=== PATIENT | male | born 1965 | race Caucasian/White ===

== ENCOUNTER 2020-04-20 18:39 | Emergency (ER) | payer OTHER, SELFPAY ==
[2020-04-20 18:41] VITALS: BP 159/89; PULSE 61; RESP 18; TEMP 36.6; O2SAT 98; BMI 31.6
--- NOTE | 2020-04-20 19:15 | RAD_ITS ---
STUDY: X-RAY CHEST REASON FOR EXAM: Male, 54 years old. checking for patency of port TECHNIQUE: Portable chest COMPARISON: None. FINDINGS: The lungs are clear and expanded. There is no demonstrated pleural abnormality. There is a left internal jugular venous with the catheter tip is projecting over the superior vena cava. There is no pneumothorax. There is right upper lobe calcified granuloma. Normal size heart. Normal mediastinum and liliana. Normal visualized pulmonary arteries. Normal visualized aortic arch and descending thoracic aorta. Normal visualized thoracic spine. Normal visualized ribs, clavicles, and shoulders. There is no demonstrated abnormality of the visualized soft tissue structures of the upper abdomen. RAD/Chest 1 View (Portable) IMPRESSION: left internal jugular venous with the catheter tip projecting over the superior vena cava. There is no pneumothorax. Electronically Signed: Denilson Crockett, at 19:33 EDT Tel , Service support ,
--- NOTE | 2020-04-20 19:27 | ED.VIS.GEN ---
History of Present Illness Chief Complaint: Chest Other Informant: Patient Onset: Today Context: Sudden Onset Narrative: Patient is a 54-year-old male that is currently on every 6 meropenem for foot infection presenting with clogged Mediport. Patient has a port in his left anterior chest wall. He was receiving infusion of meropenem at noon today. Afterwards he started to have blood back up into the tubing. Home health aides were unable to flush the port. He was sent to the emergency room for further evaluation of this. Patient denies any other complaints at this time. Past Medical History - Allergies and Home Meds Allergies/Adverse Reactions: Allergies benazepril [From Lotensin] Allergy (Verified 04/20/20 18:44) Chest tightness enalaprilat [From Vasotec] Allergy (Verified 04/20/20 18:44) Chest tightness Primary Care Physician: BETTY BUTLER [Other] Past Medical History: - - History of kidney transplant, history of end-stage renal disease, diabetes mellitus, foot infection, coronary artery disease, hypertension, hyperlipidemia Lives: With Family Smoking Status: Never smoker Review of Systems General: Denies: Chills, Fever, Sweats Eyes: Denies: Visual changes - bilaterally, Diplopia ENT: Denies: Rhinorrhea, Sore throat Cardiovascular: Denies: Chest pain, Palpitations Respiratory: Denies: Dyspnea, Cough, Dyspnea on exertion Gastrointestinal: Denies: Abdominal pain, Nausea, Vomiting, Diarrhea, Melena, Hematochezia Genitourinary: Denies: Dysuria, Hematuria, Frequency Musculoskeletal: Denies: Back pain, Extremity Pain Skin: Reports: Wounds - Chronic wounds on lower extremities, wound VAC on the right foot. Denies: Rash Neurological: Denies: Headache, Weakness, Numbness Physical Exam Vital Signs/Narrative: Vital Signs Temp Pulse Resp BP Pulse Ox 04/20/20 18:41 98 F 61 18 159/89 H 98 Inital Vital Signs reviewed: Yes General: Well nourished, Well developed, No Acute Distress Head: Normocephalic, Atraumatic Eyes: Perrl, EOMI ENT: Moist mucous membranes, No rhinorrhea Neck: Supple, Nontender Cardiovascular: Regular rate, Regular rhythm, No murmurs, - Respiratory: No distress, CTA bilaterally, Chest nontender, - - PICC line sticking out of the left anterior chest with clotted blood seen in the tubing. Surrounding signs of infection and tenderness to palpation. Abdomen: Soft, Nontender, Nondistended, Normal bowel sounds Back: Nontender, Normal Inspection Extremities: Nontender, - - Chronic wounds of the lower extremities with wound VAC in place of the right lower leg. AV fistula of the right upper extremity present Skin: Normal color. Negative for: Trauma Neurological: Alert, Oriented x3, Cranial nerves II-XII grossly intact, Normal Strength, Normal Sensation Psychological: Normal affect, Normal Mood Diagnostic/Tx/Re-eval Chest X-Ray - ED: 1 View, Read by ED Physician, Read by Radiologist, No Acute Disease Clinical Impression(s) from Imaging Studies Chest X-Ray 04/20/20 19:15 IMPRESSION: left internal jugular venous with the catheter tip projecting over the superior vena cava. There is no pneumothorax. Electronically Signed: Denilson Crockett, at 19:33 EDT Tel , Service support , Laboratory Data 04/20/20 04/20/20 21:00 21:00 WBC 10.8 RBC 4.73 Hgb 13.6 Hct 42.8 MCV 90.5 MCH 28.8 MCHC 31.8 L RDW Std Deviation 45.1 H RDW Coeff of Adonay 13.7 Plt Count 256 MPV 10.8 Immature Gran % (Auto) 0.600 Neut % (Auto) 64.4 Lymph % (Auto) 23.1 [place] % (Auto) 8.6 Eos % (Auto) 2.9 Baso % (Auto) 0.4 Absolute Neuts (auto) 6.9 Absolute Lymphs (auto) 2.49 Nucleated RBC % 0 Sodium 141 Potassium 4.4 Chloride 109 H Carbon Dioxide 30.0 Anion Gap 2 L BUN 24 H Creatinine 1.05 Estim Creat Clear Calc 99.89 Est GFR (MDRD) Af Amer 95 Est GFR (MDRD) Non-Af 78 BUN/Creatinine Ratio 22.9 H Glucose 72 L Calcium 10.6 H - Medical Decision Making Evaluate for clogged PICC line. Is been placed for 1 week and most recently worked this afternoon. Cathflo is placed into the PICC however the clot is unable to be relieved. Initially plan was to admit patient so he could still receive his IV meropenem and then have new PICC line placed in the morning however patient requested that he just receive a peripheral IV and then come back for an outpatient PICC line. Patient is given a dose of meropenem in the emergency room. He is scheduled for outpatient PICC line placement at 2 PM tomorrow. This is approved by the nursing fireworks assembly supervisor as well. Patient be discharged home with his peripheral IV in place and he can have his morning and afternoon treatments. I did discuss the case with his ID team at [facility] who is comfortable with this plan as long as he is receiving his antibiotics. ED Disposition - Plan for ED Patient: Disposition: Home or Assisted Living Diagnosis: Occluded PICC line Referrals: BETTY BUTLER [Other] Additional Instructions: You have been given a dose of meropenem in the ER today. We were not able to flush and clear the clots from your PICC line. Please return to outpatient radiology tomorrow at 2 PM for a new PICC line to be placed. The order is already been placed. In the meantime you will have a peripheral IV in to give meropenem at home as normally scheduled. Return the emergency room if you have any issues.
[2020-04-20] MEDS: Alteplase 2 MG/2 ML Vial IV (19:30)
[2020-04-20 21:13] LABS: Absolute Lymphocyte Count 2.49 X10^3/uL (0.83-4.51); Absolute Neutrophil Count 6.9 X10^3/uL (2.0-7.7); Basophil# 0.04 X10^3/uL; Basophil% 0.4 % (0-1); Eosinophil# 0.31 X10^3/uL; Eosinophils% 2.9 % (0-5); Hematocrit 42.8 % (40-54); Hemoglobin 13.6 g/dL (13.0-16.5); Lymphocyte # 2.49 X10^3/ul (4.0); Lymphocyte % 23.1 % (19-41); Mean Corp Hgb Conc 31.8 g/dL (32-36); Mean Corpuscular Hgb 28.8 pg (27.0-32.0); Mean Corpuscular Volume 90.5 fL (80-94); Mean Platelet Vol. 10.8 fl (6.2-12.0); Monocyte# 0.92 X10^3/uL; Monocyte% 8.6 % (0-10); NRBC Flagged by Analyzer 0 % (0-5); Neutrophil # 6.94 X10^3/uL (2.7-7.7); Neutrophil % 64.4 % (47-70); Platelet Count 256 K/mm3 (150-450); RBC Distribution Width CV 13.7 % (11.6-14.6); RBC Distribution Width SD 45.1 fl (35.1-43.9); Red Blood Count 4.73 M/mm3 (4.6-6.2); White Blood Count 10.8 K/mm3 (4.4-11.0)
[2020-04-20 21:29] LABS: Anion Gap 2 (5-15); BUN 24 mg/dL (7-18); BUN/Creat Ratio 22.9 RATIO (10-20); Calcium,Total 10.6 mg/dL (8.5-10.1); Chloride 109 mmol/L (98-107); Creatinine, Serum 1.05 mg/dL (0.70-1.30); EST Glomerular Filtration Rate 78 mL/min (>60); Est Glom Filt Rate - Afr Amer 95 mL/min (>60); Estimated Creatinine Clearance 99.89 ml/min; Glucose 72 mg/dL (74-106); Potassium 4.4 mmol/L (3.5-5.1); Sodium Level 141 mmol/L (136-145)
--- NOTE | 2020-04-20 22:25 | ED.RN ---
PT DC'D HOME WITH LEFT FOREARM 20G IV INSERTED, DRESSING INTACT PER MD ORDERS, OFFICE MACHINES SALES REPRESENTATIVE AND DEMO EVENT SPECIALIST AWARE. PT'S PORT OCCLUDED, WILL BE RETURNING TOMORROW FOR PICC PLACEMENT. PT REQUIRES IV ATB AT HOME, WILL ADMINISTER BY PERIPHERAL IV. PERIPHERAL IV CARE TEACHING TO AND PT. FLUSHED UNDER THIS WELDING SUPERVISOR. NEITHER PT NOR VOICE FURTHER CONCERNS.
== END 2020-04-20 22:28 | disposition home or self-care (01) ==
PROVIDERS: Emergency Provider Emergency Medicine
DX: T82.594A Other mechanical complication of infusion catheter, initial encounter (principal); I12.0 Hypertensive chronic kidney disease with stage 5 chronic kidney disease or end stage renal disease; E11.22 Type 2 diabetes mellitus with diabetic chronic kidney disease; N18.6 End stage renal disease; I25.10 Atherosclerotic heart disease of native coronary artery without angina pectoris; E78.5 Hyperlipidemia, unspecified; Z94.0 Kidney transplant status; Z79.82 Long term (current) use of aspirin; Z79.02 Long term (current) use of antithrombotics/antiplatelets; Z79.4 Long term (current) use of insulin; Z79.899 Other long term (current) drug therapy
CPT/HCPCS: 71045; 80048; 85025; 96365; 96366; 99283; J2185; J2997; J7050; A4216

== ENCOUNTER → 2020-04-21 13:53 | Outpatient (CLI) | payer OTHER, SELFPAY ==
[2020-04-20 18:41] VITALS: BMI 31.6
[2020-04-21 14:07] VITALS: BP 121/51; PULSE 60; RESP 18; TEMP 36.4; O2SAT 99; BMI 31.0
--- NOTE | 2020-04-21 14:36 | NURSING ---
AccessRAshley Leahy arrived to facility to assess PICC line and replace if necessary. Reviewed radiology report from 04/20 and found that patient has a tunneled L chest IJ with tip in SVC. HX states that the ED was unsuccessful with cath jose and unable to aspirate and flush. Assessed line: clean dry bandage covers line at insertion site. Flushes easily. Excellent blood return noted. flushed 50mL NS. No action needed. Report given to SAGAR Mayes
== END ==
DX: Z45.2 Encounter for adjustment and management of vascular access device (principal)
CPT/HCPCS: A4216

== ENCOUNTER 2020-04-28 15:33 | Outpatient (RCR) | payer OTHER, SELFPAY ==
[2020-04-21 14:07] VITALS: BMI 31.0
[2020-04-24 15:53] LABS: Absolute Lymphocyte Count 2.03 X10^3/uL (0.83-4.51); Absolute Neutrophil Count 5.9 X10^3/uL (2.0-7.7); Basophil# 0.05 X10^3/uL; Basophil% 0.5 % (0-1); Eosinophils% 3.2 % (0-5); Hematocrit 40.6 % (40-54); Hemoglobin 12.8 g/dL (13.0-16.5); Lymphocyte # 2.03 X10^3/ul (4.0); Lymphocyte % 21.8 % (19-41); Mean Corp Hgb Conc 31.5 g/dL (32-36); Mean Corpuscular Volume 92.1 fL (80-94); Mean Platelet Vol. 11.6 fl (6.2-12.0); Monocyte# 0.97 X10^3/uL; Monocyte% 10.4 % (0-10); NRBC Flagged by Analyzer 0 % (0-5); Neutrophil # 5.91 X10^3/uL (2.7-7.7); Neutrophil % 63.7 % (47-70); Platelet Count 225 K/mm3 (150-450); RBC Distribution Width CV 13.7 % (11.6-14.6); RBC Distribution Width SD 45.7 fl (35.1-43.9); Red Blood Count 4.41 M/mm3 (4.6-6.2); White Blood Count 9.3 K/mm3 (4.4-11.0)
[2020-04-24 16:24] LABS: Creatinine, Serum 0.99 mg/dL (0.70-1.30); EST Glomerular Filtration Rate 84 mL/min (>60); Est Glom Filt Rate - Afr Amer 102 mL/min (>60)
[2020-05-02 23:19] LABS: Tacrolimus (FK506) 6.3 ng/mL (2.0-20.0)
== END 2020-04-28 18:00 | disposition home or self-care (01) ==
LOC: HHLAB 15:33
DX: M86.9 Osteomyelitis, unspecified (principal)
CPT/HCPCS: 80197; 82565; 85025

== ENCOUNTER → 2020-05-22 | Outpatient (CLI) | payer OTHER, SELFPAY ==
[2020-04-21 14:07] VITALS: BMI 31.0
== END | disposition home or self-care (01) ==
LOC: HHLAB 17:28
DX: Z00.00 Encounter for general adult medical examination without abnormal findings (principal)
CPT/HCPCS: 82565; 85025

== ENCOUNTER → 2020-05-29 11:28 | Outpatient (CLI) | payer OTHER, SELFPAY ==
[2020-04-21 14:07] VITALS: BMI 31.0
== END ==
DX: E11.621 Type 2 diabetes mellitus with foot ulcer (principal); L97.422 Non-pressure chronic ulcer of left heel and midfoot with fat layer exposed; Z79.4 Long term (current) use of insulin
CPT/HCPCS: 82565; 85025

== ENCOUNTER 2020-06-05 15:52 | Outpatient (RCR) | payer OTHER, SELFPAY ==
[2020-04-21 14:07] VITALS: BMI 31.0
[2020-05-08 13:30] LABS: Absolute Lymphocyte Count 1.66 X10^3/uL (0.83-4.51); Absolute Neutrophil Count 6.8 X10^3/uL (2.0-7.7); Basophil# 0.03 X10^3/uL; Basophil% 0.3 % (0-1); Eosinophil# 0.27 X10^3/uL; Eosinophils% 2.8 % (0-5); Hematocrit 41.7 % (40-54); Hemoglobin 13.2 g/dL (13.0-16.5); Lymphocyte # 1.66 X10^3/ul (4.0); Lymphocyte % 17.3 % (19-41); Mean Corp Hgb Conc 31.7 g/dL (32-36); Mean Corpuscular Hgb 28.5 pg (27.0-32.0); Mean Corpuscular Volume 90.1 fL (80-94); Mean Platelet Vol. 11.5 fl (6.2-12.0); Monocyte# 0.81 X10^3/uL; Monocyte% 8.5 % (0-10); NRBC Flagged by Analyzer 0 % (0-5); Neutrophil # 6.76 X10^3/uL (2.7-7.7); Neutrophil % 70.7 % (47-70); Platelet Count 190 K/mm3 (150-450); RBC Distribution Width CV 13.6 % (11.6-14.6); Red Blood Count 4.63 M/mm3 (4.6-6.2); White Blood Count 9.6 K/mm3 (4.4-11.0)
[2020-05-08 13:38] LABS: Creatinine, Serum 1.39 mg/dL (0.70-1.30); EST Glomerular Filtration Rate 57 mL/min (>60); Est Glom Filt Rate - Afr Amer 69 mL/min (>60)
[2020-05-14 16:58] LABS: Absolute Lymphocyte Count 1.66 X10^3/uL (0.83-4.51); Absolute Neutrophil Count 6.6 X10^3/uL (2.0-7.7); Basophil# 0.03 X10^3/uL; Basophil% 0.3 % (0-1); Eosinophil# 0.22 X10^3/uL; Eosinophils% 2.4 % (0-5); Hematocrit 41.9 % (40-54); Hemoglobin 13.2 g/dL (13.0-16.5); Lymphocyte # 1.66 X10^3/ul (4.0); Lymphocyte % 17.8 % (19-41); Mean Corp Hgb Conc 31.5 g/dL (32-36); Mean Corpuscular Hgb 28.5 pg (27.0-32.0); Mean Corpuscular Volume 90.5 fL (80-94); Mean Platelet Vol. 11.3 fl (6.2-12.0); Monocyte# 0.77 X10^3/uL; Monocyte% 8.2 % (0-10); NRBC Flagged by Analyzer 0 % (0-5); Neutrophil # 6.61 X10^3/uL (2.7-7.7); Neutrophil % 70.8 % (47-70); Platelet Count 217 K/mm3 (150-450); RBC Distribution Width CV 13.7 % (11.6-14.6); RBC Distribution Width SD 44.3 fl (35.1-43.9); Red Blood Count 4.63 M/mm3 (4.6-6.2); White Blood Count 9.3 K/mm3 (4.4-11.0)
[2020-05-14 17:11] LABS: Creatinine, Serum 0.93 mg/dL (0.70-1.30); EST Glomerular Filtration Rate 90 mL/min (>60); Est Glom Filt Rate - Afr Amer 109 mL/min (>60)
[2020-05-22 17:41] LABS: Absolute Lymphocyte Count 1.39 X10^3/uL (0.83-4.51); Absolute Neutrophil Count 7.6 X10^3/uL (2.0-7.7); Basophil# 0.03 X10^3/uL; Basophil% 0.3 % (0-1); Eosinophil# 0.17 X10^3/uL; Eosinophils% 1.7 % (0-5); Hematocrit 42.2 % (40-54); Hemoglobin 13.5 g/dL (13.0-16.5); Lymphocyte # 1.39 X10^3/ul (4.0); Lymphocyte % 13.9 % (19-41); Mean Corpuscular Hgb 28.5 pg (27.0-32.0); Mean Platelet Vol. 11.5 fl (6.2-12.0); Monocyte# 0.71 X10^3/uL; Monocyte% 7.1 % (0-10); NRBC Flagged by Analyzer 0 % (0-5); Neutrophil # 7.63 X10^3/uL (2.7-7.7); Neutrophil % 76.5 % (47-70); Platelet Count 256 K/mm3 (150-450); RBC Distribution Width CV 13.9 % (11.6-14.6); RBC Distribution Width SD 44.8 fl (35.1-43.9); Red Blood Count 4.74 M/mm3 (4.6-6.2)
[2020-05-22 18:24] LABS: Creatinine, Serum 1.17 mg/dL (0.70-1.30); EST Glomerular Filtration Rate 69 mL/min (>60); Est Glom Filt Rate - Afr Amer 84 mL/min (>60)
[2020-05-29 11:53] LABS: Absolute Lymphocyte Count 1.97 X10^3/uL (0.83-4.51); Absolute Neutrophil Count 4.9 X10^3/uL (2.0-7.7); Basophil# 0.03 X10^3/uL; Basophil% 0.4 % (0-1); Eosinophil# 0.22 X10^3/uL; Eosinophils% 2.8 % (0-5); Hematocrit 41.5 % (40-54); Hemoglobin 13.4 g/dL (13.0-16.5); Lymphocyte # 1.97 X10^3/ul (4.0); Lymphocyte % 25.3 % (19-41); Mean Corp Hgb Conc 32.3 g/dL (32-36); Mean Corpuscular Hgb 29.1 pg (27.0-32.0); Mean Corpuscular Volume 90.2 fL (80-94); Mean Platelet Vol. 11.2 fl (6.2-12.0); Monocyte# 0.65 X10^3/uL; Monocyte% 8.3 % (0-10); NRBC Flagged by Analyzer 0 % (0-5); Neutrophil # 4.88 X10^3/uL (2.7-7.7); Neutrophil % 62.6 % (47-70); Platelet Count 208 K/mm3 (150-450); RBC Distribution Width CV 14.1 % (11.6-14.6); RBC Distribution Width SD 45.2 fl (35.1-43.9); White Blood Count 7.8 K/mm3 (4.4-11.0)
[2020-05-29 11:56] LABS: Creatinine, Serum 1.01 mg/dL (0.70-1.30); EST Glomerular Filtration Rate 82 mL/min (>60); Est Glom Filt Rate - Afr Amer 99 mL/min (>60)
[2020-06-05 16:21] LABS: Absolute Lymphocyte Count 1.53 X10^3/uL (0.83-4.51); Absolute Neutrophil Count 8.7 X10^3/uL (2.0-7.7); Basophil# 0.05 X10^3/uL; Basophil% 0.4 % (0-1); Eosinophil# 0.25 X10^3/uL; Eosinophils% 2.2 % (0-5); Hematocrit 43.4 % (40-54); Hemoglobin 13.7 g/dL (13.0-16.5); Lymphocyte # 1.53 X10^3/ul (4.0); Lymphocyte % 13.4 % (19-41); Mean Corp Hgb Conc 31.6 g/dL (32-36); Mean Corpuscular Hgb 27.8 pg (27.0-32.0); Mean Corpuscular Volume 88.2 fL (80-94); Mean Platelet Vol. 11.6 fl (6.2-12.0); Monocyte# 0.79 X10^3/uL; Monocyte% 6.9 % (0-10); NRBC Flagged by Analyzer 0 % (0-5); Neutrophil # 8.73 X10^3/uL (2.7-7.7); Neutrophil % 76.4 % (47-70); Platelet Count 260 K/mm3 (150-450); RBC Distribution Width CV 14.1 % (11.6-14.6); RBC Distribution Width SD 44.9 fl (35.1-43.9); Red Blood Count 4.92 M/mm3 (4.6-6.2); White Blood Count 11.4 K/mm3 (4.4-11.0)
[2020-06-05 16:27] LABS: Creatinine, Serum 1.01 mg/dL (0.70-1.30); EST Glomerular Filtration Rate 82 mL/min (>60); Est Glom Filt Rate - Afr Amer 99 mL/min (>60)
== END 2020-06-05 18:00 | disposition home or self-care (01) ==
LOC: HHLAB 15:52
DX: E11.621 Type 2 diabetes mellitus with foot ulcer (principal); L97.412 Non-pressure chronic ulcer of right heel and midfoot with fat layer exposed; E11.22 Type 2 diabetes mellitus with diabetic chronic kidney disease; N18.9 Chronic kidney disease, unspecified; E11.65 Type 2 diabetes mellitus with hyperglycemia; E11.42 Type 2 diabetes mellitus with diabetic polyneuropathy; E78.5 Hyperlipidemia, unspecified; E66.9 Obesity, unspecified; Z68.30 Body mass index [BMI] 30.0-30.9, adult; Z79.2 Long term (current) use of antibiotics; Z79.02 Long term (current) use of antithrombotics/antiplatelets; Z79.52 Long term (current) use of systemic steroids; Z79.82 Long term (current) use of aspirin; Z79.4 Long term (current) use of insulin; Z89.411 Acquired absence of right great toe; Z94.0 Kidney transplant status
CPT/HCPCS: 82565; 85025; J7040; A4216

== ENCOUNTER 2020-06-30 14:59 | Outpatient (RCR) | payer OTHER, SELFPAY ==
[2020-04-21 14:07] VITALS: BMI 31.0
[2020-06-30 15:44] LABS: ALB/GLOB Ratio 0.8 RATIO (0.9-2.4); AST(SGOT) 29 U/L (15-37); Alanine Aminotransfer ALT/SGPT 43 U/L (16-61); Alkaline Phosphatase 120 U/L (45-117); Anion Gap 4 (5-15); BUN 16 mg/dL (7-18); BUN/Creat Ratio 13.3 RATIO (10-20); Calcium,Total 9.5 mg/dL (8.5-10.1); Chloride 105 mmol/L (98-107); EST Glomerular Filtration Rate 67 mL/min (>60); Est Glom Filt Rate - Afr Amer 81 mL/min (>60); Glucose 319 mg/dL (74-106); Potassium 3.9 mmol/L (3.5-5.1); Sodium Level 139 mmol/L (136-145)
[2020-06-30 15:48] LABS: Hemoglobin A1c 8.4 % (3.8-5.6)
== END 2020-07-05 23:59 ==
LOC: HHLAB 14:59
PROVIDERS: Internal Medicine Endocrinology, Diabetes & Metabolism
DX: E11.621 Type 2 diabetes mellitus with foot ulcer (principal); L97.412 Non-pressure chronic ulcer of right heel and midfoot with fat layer exposed
CPT/HCPCS: 80053; 80197; 83036

== ENCOUNTER 2020-10-18 12:23 | Outpatient (RCR) | payer OTHER, SELFPAY ==
[2020-04-21 14:07] VITALS: BMI 31.0
[2020-10-18 12:57] LABS: ALB/GLOB Ratio 0.8 RATIO (0.9-2.4); AST(SGOT) 52 U/L (15-37); Alanine Aminotransfer ALT/SGPT 68 U/L (16-61); Albumin, Serum 2.8 g/dL (3.2-5.0); Alkaline Phosphatase 123 U/L (45-117); Anion Gap 6 (5-15); BUN 12 mg/dL (7-18); Chloride 105 mmol/L (98-107); Creatinine, Serum 1.09 mg/dL (0.70-1.30); EST Glomerular Filtration Rate 75 mL/min (>60); Est Glom Filt Rate - Afr Amer 91 mL/min (>60); Globulin 3.7 g/dL (2.2-4.2); Glucose 202 mg/dL (74-106); Potassium 3.7 mmol/L (3.5-5.1); Protein, Total 6.5 g/dL (6.4-8.2); Sodium Level 137 mmol/L (136-145)
[2020-10-18 13:01] LABS: Vitamin D,25 Hydroxy 101.8 ng/mL
[2020-10-18 13:08] LABS: Hemoglobin A1c 10.7 % (3.8-5.6)
== END 2020-10-18 18:00 | disposition home or self-care (01) ==
LOC: HHLAB 12:23
DX: E11.621 Type 2 diabetes mellitus with foot ulcer (principal); L97.412 Non-pressure chronic ulcer of right heel and midfoot with fat layer exposed
CPT/HCPCS: 80053; 82306; 83036

== ENCOUNTER → 2023-01-11 23:59 | Outpatient (RCR) | payer OTHER, SELFPAY ==
[2020-04-17 15:03] LABS: Absolute Lymphocyte Count 1.54 X10^3/uL (0.83-4.51); Absolute Neutrophil Count 7.6 X10^3/uL (2.0-7.7); Basophil# 0.04 X10^3/uL; Basophil% 0.4 % (0-1); Eosinophil# 0.36 X10^3/uL; Eosinophils% 3.5 % (0-5); Hematocrit 41.7 % (40-54); Hemoglobin 13.1 g/dL (13.0-16.5); Lymphocyte # 1.54 X10^3/ul (4.0); Lymphocyte % 14.9 % (19-41); Mean Corp Hgb Conc 31.4 g/dL (32-36); Mean Corpuscular Hgb 28.6 pg (27.0-32.0); Monocyte% 7.7 % (0-10); NRBC Flagged by Analyzer 0 % (0-5); Neutrophil # 7.58 X10^3/uL (2.7-7.7); Platelet Count 291 K/mm3 (150-450); RBC Distribution Width CV 13.6 % (11.6-14.6); RBC Distribution Width SD 44.7 fl (35.1-43.9); Red Blood Count 4.58 M/mm3 (4.6-6.2); White Blood Count 10.4 K/mm3 (4.4-11.0)
[2020-04-17 15:09] LABS: Creatinine, Serum 1.02 mg/dL (0.70-1.30); EST Glomerular Filtration Rate 81 mL/min (>60); Est Glom Filt Rate - Afr Amer 98 mL/min (>60)
== END ==
LOC: HH 04-17 14:20
DX: M86.9 Osteomyelitis, unspecified (principal)
CPT/HCPCS: 82565; 85025

== ENCOUNTER → 2023-01-25 23:59 | Outpatient (RCR) | payer OTHER, SELFPAY ==
[2020-04-21 14:07] VITALS: BMI 31.0
[2020-05-01 15:55] LABS: Absolute Lymphocyte Count 1.31 X10^3/uL (0.83-4.51); Absolute Neutrophil Count 7.4 X10^3/uL (2.0-7.7); Basophil# 0.04 X10^3/uL; Basophil% 0.4 % (0-1); Eosinophil# 0.28 X10^3/uL; Eosinophils% 2.8 % (0-5); Hematocrit 42.5 % (40-54); Hemoglobin 13.2 g/dL (13.0-16.5); Lymphocyte # 1.31 X10^3/ul (4.0); Lymphocyte % 13.3 % (19-41); Mean Corp Hgb Conc 31.1 g/dL (32-36); Mean Corpuscular Hgb 28.7 pg (27.0-32.0); Mean Corpuscular Volume 92.4 fL (80-94); Mean Platelet Vol. 11.8 fl (6.2-12.0); Monocyte% 8.1 % (0-10); NRBC Flagged by Analyzer 0 % (0-5); Neutrophil % 74.9 % (47-70); Platelet Count 216 K/mm3 (150-450); RBC Distribution Width CV 13.5 % (11.6-14.6); RBC Distribution Width SD 45.4 fl (35.1-43.9); White Blood Count 9.9 K/mm3 (4.4-11.0)
[2020-05-01 19:08] LABS: Creatinine, Serum 1.06 mg/dL (0.70-1.30); EST Glomerular Filtration Rate 77 mL/min (>60); Est Glom Filt Rate - Afr Amer 94 mL/min (>60)
== END ==
LOC: HH 05-01 14:58
DX: E11.621 Type 2 diabetes mellitus with foot ulcer (principal); L97.412 Non-pressure chronic ulcer of right heel and midfoot with fat layer exposed
CPT/HCPCS: 82565; 85025